=== PATIENT | female | born 1940 | race Caucasian/White ===

== ENCOUNTER 2020-07-30 16:58 | Emergency (ER) | payer MEDICARE, OTHER, SELFPAY ==
[2020-07-30 17:04] VITALS: BP 192/89; PULSE 100; RESP 18; TEMP 37; O2SAT 97; BMI 30.9
[2020-07-30 17:12] VITALS: BP 192/89; PULSE 96; RESP 18; O2SAT 97
--- NOTE | 2020-07-30 17:14 | USR_ITS ---
PROCEDURE INFORMATION: Exam: US Duplex Left Lower Extremity Veins, Limited Exam date and time: 07/30/2020 5:18 PM Age: 79 years old Clinical indication: Pain; Leg, lower; Left; Additional info: Left calf swelling TECHNIQUE: Imaging protocol: Real-time Duplex ultrasound of the Left Lower Extremity with 2-D roberts scale, color Doppler flow and spectral waveform analysis with image documentation. Limited exam focused on the left lower extremity veins. Total images: 1756 COMPARISON: No relevant prior studies available. FINDINGS: Left deep veins: Unremarkable. The common femoral, femoral, proximal profunda femoral and popliteal veins are patent without thrombus. Normal Doppler waveforms. Normal compressibility and/or augmentation response. Left superficial veins: Unremarkable. Saphenofemoral junction is patent without thrombus. Soft tissues: Unremarkable. US/CV venous duplex [facility] [id number] IMPRESSION: No evidence of deep vein thrombosis.
[2020-07-30 17:19] VITALS: PULSE 99
[2020-07-30 17:43] LABS: Basophils # 0.1 10^3/uL (0.0-0.1); Eosinophils # 0.1 10^3/uL (0.0-0.8); Eosinophils % 2.1 %; Hematocrit 33.3 % (37.0-47.0); Hemoglobin 10.8 g/dL (11.5-15.3); Lymphocytes # 2.2 10^3/uL (0.8-4.8); Lymphocytes % 46.5 %; Mean Corpuscular HGB Conc 32.4 g/dL (30.0-36.0); Mean Corpuscular Hemoglobin 29.8 pg (28.0-34.0); Mean Platelet Volume 8.2 fL (7.4-10.4); Monocytes # 0.5 10^3/uL (0.2-0.9); Monocytes % 9.4 %; Neutrophils # 1.94 10^3/uL (1.8-7.7); Neutrophils % 40.8 %; Nucleated Red Blood Cells % 0 %; Platelet Count 223 10^3/cmm (130-400); Red Blood Count 3.62 10^6/uL (4.1-5.3); White Blood Count 4.8 10^3/uL (4.0-10.0)
[2020-07-30 17:51] LABS: INR 0.98 (0.8-1.2)
[2020-07-30 17:54] LABS: D Dimer 0.71 ug/mIFEU (0-0.59)
[2020-07-30 17:58] LABS: Alanine Aminotransferase 17 U/L (0-33); Albumin Level 4.3 g/dL (3.5-5.2); Alkaline Phosphatase 71 IU/L (35-105); Anion Gap 13.8 (5-19); Aspartate Amino Transferase 21 U/L (0-32); Blood Urea Nitrogen 21 mg/dL (8-23); Calcium 8.8 mg/dL (8.5-10.5); Carbon Dioxide 27 mmol/L (22-29); Chloride 97 mmol/L (98-107); Globulin 3.1 g/dL (1.3-4.6); Glucose 99 mg/dL (65-115); Osmolality Calculated 279 mOsm/kg (285-295); Potassium 4.8 mmol/L (3.5-5.1); Sodium 133 mmol/L (136-145); Total Bilirubin 0.2 mg/dL (0.15-1.2); Total Protein 7.4 g/dL (6.6-8.7)
--- NOTE | 2020-07-30 18:37 | ED_ITS ---
HPI - Extremity Problem General: Chief complaint: Extremity Problem,Nontraumatic Stated complaint: PAIN IN LLE BEGAN AFTER J&J COVID VACCINE 05.10 Time Seen by Provider: 07/30/20 17:09 Source: patient and family (daughter) Mode of arrival: ambulatory Limitations: no limitations History of Present Illness: HPI Narrative: Patient is an 79-year-old female who developed left leg pain about 3 days ago. 1 week ago she received her Jose & Jose COVID-19 vaccine. She is concerned that she may have a DVT. No prior history of DVTs but her daughter has had a DVT in the past. No trauma to her left lower extremity. MD Complaint: extremity pain and extremity swelling Onset (ago): day(s) (3) Pain Consistency: constant Quality: sharp Radiation: proximal Relieving factors: nothing Exacerbating factors: nothing Associated symptoms: Deny arthralgias, chest pain, fever(s), myalgias, rash or short of breath Review of Systems General: Reports: 10 or more systems reviewed and unremarkable except in HPI and below Const: Denies: fever(s) Card: Denies: chest pain Skin/Breast: Denies: rash Physical Exam Const: COMMON NORMALS: no acute distress, average body habitus, patient oriented x3, no limitations, healthy appearing, alert and well nourished Neck/C-Spine: COMMON NORMALS: no meningeal signs and no JVD Resp: COMMON NORMALS: normal respiratory effort, No retractions, No use of accessory muscles, clear to auscultation bilaterally and percussion normal AUSCULTATION: clear to auscultation bilaterally PERCUSSION: percussion normal Cardio: COMMON NORMALS: no JVD, regular rate, regular rhythm, S1 normal heart sound present, S2 normal heart sound present, No gallops present (Cardio), No clicks present (Cardio), No murmurs present (Cardio), No rub (Cardio) and Peripheral pulses 2+ throughout RATE: regular rate RHYTHM: regular rhythm HEART SOUNDS: S1 normal heart sound present and S2 normal heart sound present PERIPHERAL PULSES: Peripheral pulses 2+ throughout GI: COMMON NORMALS: Normal to inspection, nondistended, normoactive bowel sounds present, Soft to palpation, non-tender, No hepatosplenomegaly present, no masses and no bruits PALPATION: Yes Soft to palpation and Yes No hepatosplenomegaly present Extremity: COMMON NORMALS: normal to inspection, full ROM, capillary refill normal, no calf tenderness and no pedal edema LEFT LOWER EXTREMITY: Yes lower leg (Mild swelling of the left lower extremity. Positive calf tenderness.) Left lower leg: Yes palpation Neuro: COMMON NORMALS: patient oriented x3 SENSORIUM/ORIENTATION: Yes alert MENINGEAL SIGNS: Yes no meningeal signs Skin: COMMON NORMALS: no rashes or lesions noted, no wounds, turgor normal, no jaundice, no petechiae and no mottling GENERAL SKIN EXAM: no rashes or lesions noted and turgor normal Course Reevaluation(s): Reevaluation #1: Discussed lab and imaging findings with her. Negative venous Doppler. Labs unremarkable, normal platelet count reducing the risk of Jose & Jose vaccine induced thrombosis. She is discharged home on conservative measures. Time: 18:37 Vital Signs: Vital signs: Vital Signs Temperature 98.6 F 07/30/20 17:04 Pulse Rate 87 07/30/20 18:43 Respiratory Rate 18 07/30/20 18:43 Blood Pressure 172/82 07/30/20 18:43 Pulse Oximetry 97 07/30/20 18:43 MDM - Extremity (Nontraumatic) MDM Narrative: Medical decision making narrative: Patient who presents with left lower extremity pain and swelling. She has concern for DVT because a few days before the pain started she had received the Jose [employer] Jose COVID-19 vaccine. Evaluation in the ED was unremarkable including normal platelet count. She is discharged home on conservative measures. Lab Data: Labs: Lab Results 07/30/20 07/30/20 07/30/20 Range/Units 17:29 17:29 17:29 WBC 4.8 (4.0-10.0) 10^3/ uL RBC 3.62 L (4.1-5.3) 10^6/u L Hgb 10.8 L (11.5-15.3) g/dL Hct 33.3 L (37.0-47.0) % MCV 92.0 (81-99) fL MCH 29.8 (28.0-34.0) pg MCHC 32.4 (30.0-36.0) g/dL RDW 13.0 (12.1-15.1) % Plt Count 223 (130-400) 10^3/c mm MPV 8.2 (7.4-10.4) fL Neut % (Auto) 40.8 % Lymph % (Auto) 46.5 % [place] % (Auto) 9.4 % Eos % (Auto) 2.1 % Baso % (Auto) 1.0 % Neut # (Auto) 1.94 (1.8-7.7) 10^3/u L Lymph # (Auto) 2.2 (0.8-4.8) 10^3/u L [place] # (Auto) 0.5 (0.2-0.9) 10^3/u L Eos # (Auto) 0.1 (0.0-0.8) 10^3/u L Baso # (Auto) 0.1 (0.0-0.1) 10^3/u L Nucleated RBC % (a uto) 0 % Nucleated RBCs # 0.0 /100WBC PT 13.30 (12.1-14.9) SECO NDS INR 0.98 (0.8-1.2) D-Dimer 0.71 H (0-0.59) ug/mIFE U Sodium 133 L (136-145) mmol/L Potassium 4.8 (3.5-5.1) mmol/L Chloride 97 L (98-107) mmol/L Carbon Dioxide 27 (22-29) mmol/L Anion Gap 13.8 (5-19) BUN 21 (8-23) mg/dL Creatinine 1.0 H (0.5-0.9) mg/dL GFR Calculation Not Reportable Glucose 99 (65-115) mg/dL Calculated Osmolal ity 279 L (285-295) mOsm/k g Calcium 8.8 (8.5-10.5) mg/dL Total Bilirubin 0.2 (0.15-1.2) mg/dL AST 21 (0-32) U/L ALT 17 (0-33) U/L Alkaline Phosphata se 71 (35-105) IU/L Total Protein 7.4 (6.6-8.7) g/dL Albumin 4.3 (3.5-5.2) g/dL Globulin 3.1 (1.3-4.6) g/dL Imaging Data^: US Vascular: Attestation: I personally reviewed and interpreted this imaging study as follows: Radiologist's impression: [facility] [facility] Hospital[address].[place], [place] [address]Knttskxeof ReportSigned Patient: Diana Barney #: [id number]: 9Acct#:[id number]/Sex: 79 / FADM Date: 07/30/20Loc: ERRoom/Bed:Attending Dr: Ordering Provider/Ordering MD: Dez Moore MD, [facility] Date of Service: 07/30/20 Procedure(s): [place] [address] Accession Number(s): [id number] Report Number: [id number] PROCEDURE INFORMATION: Exam: US Duplex Left Lower Extremity Veins, Limited Exam date and time: 07/30/2020 5:18 PM Age: 79 years old Clinical indication: Pain; Leg, lower; Left; Additional info: Left calf swelling TECHNIQUE: Imaging protocol: Real-time Duplex ultrasound of the Left Lower Extremity with 2-D roberts scale, color Doppler flow and spectral waveform analysis with image documentation. Limited exam focused on the left lower extremity veins. Total images: 1756 COMPARISON: No relevant prior studies available. FINDINGS: Left deep veins: Unremarkable. The common femoral, femoral, proximal profunda femoral and popliteal veins are patent without thrombus. Normal Doppler waveforms. Normal compressibility and/or augmentation response. Left superficial veins: Unremarkable. Saphenofemoral junction is patent without thrombus. Soft tissues: Unremarkable. US/[place] [id number] IMPRESSION: No evidence of deep vein thrombosis. Dictated By:Fadia Morales By:Fadia Morales Date/Time:07/30/201826DD/ 24 Discharge Plan Discharge Patient Disposition: Home Clinical Impression: Acute pain of left lower extremity Condition: Stable Prescriptions: Continued diphenhydramine HCl 50 mg Tablet 50 mg PO DAILY RF: 0 cod liver oil Capsule 1 cap PO DAILY RF: 0 famotidine 20 mg tablet 20 mg PO BEDTIME RF: 0 aspirin 81 mg Tablet,Chewable 81 mg PO DAILY RF: 0 lisinopril 5 mg tablet 5 mg PO TID RF: 0 loratadine 10 mg Tablet 10 mg PO DAILY RF: 0 yllhooy-mdbwbwhmz-tstl 333-133-5 mg Tablet 1 tab PO TID RF: 0 Probiotic 3 billion cell Capsule 3,000 mmu cells PO BEDTIME RF: 0 Discharge Orders: Discharge ED (Routine); Ordered 07/30/20 Ordered By: Dez Moore Referrals: Diaz Lopes MD [Primary Care Provider] - 1-3 days Discharge Diet: Usual diet Discharge Activity: Increase activity as tolerated Activity Restrictions/Additional Instructions: Return for any new or worsening symptoms. Follow-up with your primary care provider within 3 days. Take Tylenol or ibuprofen as needed for pain. Elevate your left lower extremity to reduce swelling. Coding Level of Care Code ED Type Rolling Machine Operator for Nilo Tarango
[2020-07-30 18:43] VITALS: BP 172/82; PULSE 87; RESP 18; O2SAT 97
== END 2020-07-30 18:45 | disposition home or self-care (01) ==
PROVIDERS: Emergency Provider Family Medicine; PCP Family Medicine
DX: M79.605 Pain in left leg (principal); Z79.82 Long term (current) use of aspirin
CPT/HCPCS: 80053; 85025; 85378; 85610; 93971; 99283

== ENCOUNTER 2020-08-07 10:53 | Outpatient (CLI) | payer MEDICARE, OTHER, SELFPAY ==
--- NOTE | 2020-08-07 11:05 | XR_ITS ---
WS: [id number] Exam: XR knee LT 3V* [id number] Date/Time of Exam: 08/07/2020 11:25 AM Reason For Exam: KNEE PAIN,LEFT No fracture or dislocation. Moderate tricompartmental degenerative change noted. Probable loose joint bodies. No joint effusion. Osteopenia. XR/XR knee LT 3V* [id number] IMPRESSION: 1. Moderate tricompartmental DJD. 2. Probable loose joint bodies.
== END 2020-08-07 10:54 | disposition home or self-care (01) ==
PROVIDERS: PCP Family Medicine; Visit Provider Family Medicine
DX: M25.562 Pain in left knee (principal); M17.12 Unilateral primary osteoarthritis, left knee
CPT/HCPCS: 73562

== ENCOUNTER 2021-10-02 18:16 | Emergency (ER) | payer MEDICARE, OTHER, SELFPAY ==
--- NOTE | 2021-10-02 18:55 | XRR_ITS ---
PROCEDURE INFORMATION: Exam: XR Chest Exam date and time: 10/02/2021 7:04 PM Age: 80 years old Clinical indication: Other: Syncope; Additional info: Emesis, syncope TECHNIQUE: Imaging protocol: Radiologic exam of the chest. Views: 1 view. COMPARISON: CR Chest 1 [place] [id number] 08/12/2016 7:35 AM FINDINGS: Lungs: Unremarkable. No consolidation. Pleural spaces: Unremarkable. No pleural effusion. No pneumothorax. Heart/Mediastinum: Unremarkable. No cardiomegaly. Bones/joints: Unremarkable. XR/XR chest 1V portable [id number] IMPRESSION: No acute findings.
[2021-10-02 18:58] VITALS: BP 157/67; PULSE 96; RESP 18; O2SAT 96
--- NOTE | 2021-10-02 19:06 | ED_ITS ---
HPI - General Adult General: Chief complaint: Nausea/Vomiting/Diarrhea Stated complaint: N/V/D SYNCOPE Time Seen by Provider: 10/02/21 18:55 History of Present Illness: 80-year-old female comes in today for complaints of several episodes of diarrhea. Patient then felt lightheaded and had a episode of unresponsiveness followed by nausea and vomiting. Patient is more alert and responsive at this time. Patient was brought to the emergency room by EMS. Both daughters are at bedside. They reported this morning she woke up and spent some time outside but then came back in the house because she was not feeling well. Patient rested and drink plenty of fluids and ate some peanut butter crackers. This afternoon patient started having episodes of diarrhea which the daughter is reported as 4 large episodes. Patient states that she did feel better after the episodes of diarrhea but weak and hungry. While the daughters were getting her something to eat she started having blurry vision and feeling like she was going to pass out. The daughters reported that she then had several more episodes of watery stools. Followed by an episode of syncope. The daughters reported checking her blood pressure and noted it was in 90 systolic and pulse rate was in the 30s. Patient was unresponsive to tactile stimuli. EMS was then dispatched to the home. By the time EMS arrived patient was more alert but weak. Patient in the interim did have 2-3 episodes of emesis. At this time patient appears nontoxic, answering questions, but reports feeling weak and tired. Associated symptoms: Reports nausea, syncope and vomiting; Deny chest pain, dyspnea, headache(s) or rash Review of Systems General: Reports: 10 or more systems reviewed and unremarkable except in HPI and below Const: Reports: fatigue Card: Reports: syncope; Denies: chest pain Resp: Denies: dyspnea GI: Reports: nausea, vomiting and diarrhea : Denies: difficulty voiding Musc: Denies: neck pain or back pain Skin/Breast: Denies: rash Neuro: Reports: seizure-like activity; Denies: headache(s) Physical Exam Const: COMMON NORMALS: patient oriented x3 and alert HENMT: COMMON NORMALS: normocephalic HEAD & SCALP: normocephalic Neck/C-Spine: COMMON NORMALS: full ROM Resp: COMMON NORMALS: normal respiratory effort and clear to auscultation bilaterally AUSCULTATION: clear to auscultation bilaterally Cardio: COMMON NORMALS: regular rate and regular rhythm RATE: regular rate RHYTHM: regular rhythm GI: COMMON NORMALS: Soft to palpation and non-tender AUSCULTATION: Yes Hyperactive bowel sounds present PALPATION: Yes Soft to palpation Extremity: COMMON NORMALS: no pedal edema RIGHT LOWER EXTREMITY: Yes foot & digits (Arthritic joint with scar from ORIF) Neuro: COMMON NORMALS: patient oriented x3 SENSORIUM/ORIENTATION: Yes alert Skin: COMMON NORMALS: no rashes or lesions noted GENERAL SKIN EXAM: no rashes or lesions noted Course Vital Signs: Vital signs: Vital Signs Pulse Rate 96 10/02/21 18:58 Respiratory Rate 18 10/02/21 18:58 Blood Pressure 157/67 10/02/21 18:58 Pulse Oximetry 96 10/02/21 18:[address] [facility] - General Adult Medical Decision Making Patient comes in today with episode of syncope after a bout of nausea vomiting and diarrhea. On exam patient was more alert and reported feeling better. Abdomen is soft nontender. Bowel sounds were present. Vital signs were normal. Differential diagnosis includes ACS, intracranial bleed, gastroenteritis, dehydration, bowel obstruction. CBC noted some mild anemia improved over last drawl, CMP noted some decrease sodium at 128 and a creatinine 1.0 suggesting dehydration, troponin was 24 on the first draw and 21 on the second draw showing no exchange consultant the [address] of the head was unremarkable. CT of the abdomen and pelvis indicated no significant abnormalities. Chest x-ray was normal. Believe patient probably had an episode of vasovagal syncope after her bout of diarrhea and vomiting. Patient was given 1-1/2 L of saline and a dose of ondansetron. Patient was able to tolerate p.o. fluids and saltine crackers and Jell-O. Reviewed exam with patient and family members with recommendations for monitoring and returning as needed for worsening symptoms. Lab Data : 10/02/21 17:52 10/02/21 17:52 Radiology Impressions Chest X-Ray 10/02/21 18:55 IMPRESSION: No acute findings. Head CT 10/02/21 19:31 IMPRESSION: Negative for intracranial hemorrhage or mass effect. Abdomen/Pelvis CT 10/02/21 19:32 IMPRESSION: 1. Left colon wall thickening likely due to nondistention, a colitis is felt less likely. 2. Small to moderate nonspecific fluid in the pelvis. 3. Coronary artery atherosclerotic calcifications. 4. Cholecystectomy. 5. Diverticulosis without diverticulitis. Laboratory Results WBC 7.5 10^3/uL (4.0-10.0) 10/02/21 17:52 RBC 4.02 10^6/uL (4.1-5.3) L 10/02/21 17:52 Hgb 11.4 g/dL (11.5-15.3) L 10/02/21 17:52 Hct 34.8 % (37.0-47.0) L 10/02/21 17:52 MCV 86.6 fl (81-99) 10/02/21 17:52 MCH 28.4 pg (28.0-34.0) 10/02/21 17:52 MCHC 32.8 g/dL (30.0-36.0) 10/02/21 17:52 RDW 13.1 % (12.1-15.1) 10/02/21 17:52 Plt Count 335 10^3/cmm (130-400) 10/02/21 17:52 MPV 8.9 fL (7.4-10.4) 10/02/21 17:52 Neut % (Auto) 56.5 % 10/02/21 17:52 Lymph % (Auto) 31.8 % 10/02/21 17:52 [place] % (Auto) 7.9 % 10/02/21 17:52 Eos % (Auto) 2.3 % 10/02/21 17:52 Baso % (Auto) 1.1 % 10/02/21 17:52 Neut # (Auto) 4.21 10^3/uL (1.8-7.7) 10/02/21 17:52 Lymph # (Auto) 2.4 10^3/uL (0.8-4.8) 10/02/21 17:52 [place] # (Auto) 0.6 10^3/uL (0.2-0.9) 10/02/21 17:52 Eos # (Auto) 0.2 10^3/uL (0.0-0.8) 10/02/21 17:52 Baso # (Auto) 0.1 10^3/uL (0.0-0.1) 10/02/21 17:52 Nucleated RBC % (auto) 0 % 10/02/21 17:52 Nucleated RBCs # 0.0 /100WBC 10/02/21 17:52 Sodium 128 mmol/L (136-145) L 10/02/21 17:52 Potassium 4.3 mmol/L (3.5-5.1) 10/02/21 17:52 Chloride 91 mmol/L (98-107) L 10/02/21 17:52 Carbon Dioxide 23 mmol/L (22-29) 10/02/21 17:52 Anion Gap 18.3 (5-19) 10/02/21 17:52 BUN 23 mg/dL (8-23) 10/02/21 17:52 Creatinine 1.0 mg/dL (0.5-0.9) H 10/02/21 17:52 GFR Calculation Not Reportable 10/02/21 17:52 Glucose 128 mg/dL (65-115) H 10/02/21 17:52 POC Glucose 176 mg/dL (70-110) H 10/02/21 19:14 Calculated Osmolality 271 mOsm/kg (285-295) L 10/02/21 17:52 Calcium 9.4 mg/dL (8.5-10.5) 10/02/21 17:52 Total Bilirubin 0.2 mg/dL (0.15-1.2) 10/02/21 17:52 AST 25 U/L (0-32) 10/02/21 17:52 ALT 13 U/L (0-33) 10/02/21 17:52 Alkaline Phosphatase 78 IU/L (35-105) 10/02/21 17:52 Troponin T Baseline 24 ng/L (0-10) H 10/02/21 17:52 Troponin T 120 Minute 21.14 ng/L (0-10) H 10/02/21 21:40 Delta Troponin T -2.86 ABS# (0-10) L 10/02/21 21:40 Total Protein 6.9 g/dL (6.6-8.7) 10/02/21 17:52 Albumin 4.8 g/dL (3.5-5.2) 10/02/21 17:52 Globulin 2.1 g/dL (1.3-4.6) 10/02/21 17:52 Lipase 126 U/L (13-60) H 10/02/21 17:52 Urine Color Yellow (Yellow) 10/02/21 20:26 Urine Appearance Clear (CLEAR) 10/02/21 20:26 Urine pH 6.5 (5-7) 10/02/21 20:26 Ur Specific [place] 1.005 (1.005-1.030) 10/02/21 20:26 Urine Protein Neg (Negative) 10/02/21 20:26 Urine Glucose (UA) Norm (Normal) 10/02/21 20:26 Urine Ketones Negative (Negative) 10/02/21 20:26 Urine Blood Neg (Negative) 10/02/21 20:26 Urine Nitrate Negative (Negative) 10/02/21 20:26 Urine Bilirubin Neg (Negative) 10/02/21 20:26 Urine Urobilinogen Norm mg/dL (Negative) 10/02/21 20:26 Ur Leukocyte Esterase 2+ (Negative) H 10/02/21 20:26 Urine RBC 0-4 /hpf (0-2) H 10/02/21 20:26 Urine WBC 10-15 /hpf (0-5) H 10/02/21 20:26 Ur Squamous Epith Cells 0-4 /hpf (0-5) H 10/02/21 20:26 Ur Renal Epithelial Cell 0-4 /hpf 10/02/21 20:26 Amorphous Sediment Not Reportable 10/02/21 20:26 Urine Bacteria 2+ /hpf (NONE) H 10/02/21 20:26 Hyaline Casts 0-4 /lpf H 10/02/21 20:26 EKG Data EKG 1: EKG interpretation date: 10/02/21 EKG interpretation time: 19:48 Interpretation: EKG shows a sinus rhythm with occasional premature supraventricular complexes. Regular rate at [address] elevation is noted. No prior exam was available for comparison. Computer generated interpretation: Chest X-Ray 10/02/21 18:55 IMPRESSION: No acute findings. Head CT 10/02/21 19:31 IMPRESSION: Negative for intracranial hemorrhage or mass effect. Abdomen/Pelvis CT 10/02/21 19:32 IMPRESSION: 1. Left colon wall thickening likely due to nondistention, a colitis is felt less likely. 2. Small to moderate nonspecific fluid in the pelvis. 3. Coronary artery atherosclerotic calcifications. 4. Cholecystectomy. 5. Diverticulosis without diverticulitis. EKG 2: EKG interpretation date: 10/02/21 EKG interpretation time: 21:47 Prior EKG tracings: available for review Interpretation: EKG shows a regular sinus rhythm with a normal rate of [address] elevation or ectopy is noted at this time. Computer generated interpretation: Chest X-Ray 10/02/21 18:55 IMPRESSION: No acute findings. Head CT 10/02/21 19:31 IMPRESSION: Negative for intracranial hemorrhage or mass effect. Abdomen/Pelvis CT 10/02/21 19:32 IMPRESSION: 1. Left colon wall thickening likely due to nondistention, a colitis is felt less likely. 2. Small to moderate nonspecific fluid in the pelvis. 3. Coronary artery atherosclerotic calcifications. 4. Cholecystectomy. 5. Diverticulosis without diverticulitis. Discharge Plan Discharge Patient Disposition: Home Clinical Impression: Syncope, vasovagal, Gastroenteritis, Dehydration Condition: Stable Prescriptions: No Action cod liver oil Capsule 1 cap PO DAILY 0RF famotidine 20 mg tablet 20 mg PO BEDTIME 0RF aspirin 81 mg Tablet,Chewable 81 mg PO DAILY 0RF lisinopril 5 mg tablet 5 mg PO TID 0RF loratadine 10 mg Tablet 10 mg PO DAILY 0RF bjhklzy-wdorndxxu-lqll 333-133-5 mg Tablet 1 tab PO TID 0RF Probiotic 3 billion cell Capsule 3,000 mmu cells PO BEDTIME 0RF Discharge Orders: Discharge ED (Routine); Ordered 10/02/21 Ordered By: Carlos Alberto Avendano Referrals: Diaz Lopes MD [Primary Care Provider] - Discharge Diet: Usual diet Discharge Activity: Increase activity as tolerated Patient Instructions: Dehydration (ED) Activity Restrictions/Additional Instructions: Increase diet slowly over the next 24 to 48 hours. Avoid spicy, overly acidic, or greasy foods. Start with a bland diet with foods like bananas, rice, apples, toast, and boiled chicken. Follow-up with primary care as needed. Return to ER for new concerns. Coding Level of Care Code ED Intermediate Card Tender for Chg Fwd Exam Comprehensive
[2021-10-02 19:27] LABS: Glucose Point of Care 176 mg/dL (70-110)
[2021-10-02] MEDS: sodium chloride 0.9% 500 ML 999 ML IV (19:30)
--- NOTE | 2021-10-02 19:31 | CTR_ITS ---
PROCEDURE INFORMATION: Exam: CT Head Without Contrast Exam date and time: 10/02/2021 7:31 PM Age: 80 years old Clinical indication: Syncope and collapse; Patient HX: Syncopal episode today. C/O general weakness. TECHNIQUE: Imaging protocol: Computed tomography of the head without contrast. Radiation optimization: All CT scans at this facility use at least one of these dose optimization techniques: automated exposure control; mA and/or kV adjustment per patient size (includes targeted exams where dose is matched to clinical indication); or iterative reconstruction. COMPARISON: CT head wo con* [id number] 12/03/2018 2:51 PM RADIATION DOSE METRICS: Total DLP (mGy-cm): 1078.38 FINDINGS: Brain: Mild diffuse white matter disease likely reflecting chronic microvascular ischemic changes. Cerebral ventricles: No ventriculomegaly. Paranasal sinuses: Visualized sinuses are unremarkable. No fluid levels. Mastoid air cells: Visualized mastoid air cells are well aerated. Bones/joints: Unremarkable. No acute fracture. Soft tissues: Unremarkable. CT/CT head wo con* [id number] IMPRESSION: Negative for intracranial hemorrhage or mass effect.
--- NOTE | 2021-10-02 19:32 | CTR_ITS ---
PROCEDURE INFORMATION: Exam: CT Abdomen And Pelvis Without Contrast Exam date and time: 10/02/2021 7:35 PM Age: 80 years old Clinical indication: Nausea and vomiting; Prior surgery; Surgery type: Gb; Patient HX: C/O n/v/d TECHNIQUE: Imaging protocol: Computed tomography of the abdomen and pelvis without contrast. Radiation optimization: All CT scans at this facility use at least one of these dose optimization techniques: automated exposure control; mA and/or kV adjustment per patient size (includes targeted exams where dose is matched to clinical indication); or iterative reconstruction. COMPARISON: US Abdomen Trauma [id number] 12/03/2018 2:30 PM RADIATION DOSE METRICS: Total DLP (mGy-cm): 1187.04 FINDINGS: Heart: Coronary artery atherosclerotic calcifications. Liver: Normal. No mass. Gallbladder and bile ducts: Cholecystectomy. Pancreas: Normal. No ductal dilation. Spleen: Normal. No splenomegaly. Adrenal glands: Normal. No mass. Kidneys and ureters: Normal. No hydronephrosis. Stomach and bowel: Left colon wall thickening likely due to nondistention, a colitis is felt less likely. Diverticulosis without diverticulitis. Appendix: No evidence of appendicitis. Intraperitoneal space: Unremarkable. No free air. No significant fluid collection. Vasculature: Unremarkable. No abdominal aortic aneurysm. Lymph nodes: Unremarkable. No enlarged lymph nodes. Urinary bladder: Unremarkable as visualized. Reproductive: Unremarkable as visualized. Bones/joints: Unremarkable. No acute fracture. Soft tissues: Unremarkable. Other findings: Small to moderate nonspecific fluid in the pelvis. CT/CT abdomen pelvis wo con [id number] IMPRESSION: 1. Left colon wall thickening likely due to nondistention, a colitis is felt less likely. 2. Small to moderate nonspecific fluid in the pelvis. 3. Coronary artery atherosclerotic calcifications. 4. Cholecystectomy. 5. Diverticulosis without diverticulitis.
[2021-10-02 19:48] LABS: Basophils # 0.1 10^3/uL (0.0-0.1); Basophils % 1.1 %; Eosinophils # 0.2 10^3/uL (0.0-0.8); Eosinophils % 2.3 %; Hematocrit 34.8 % (37.0-47.0); Hemoglobin 11.4 g/dL (11.5-15.3); Lymphocytes # 2.4 10^3/uL (0.8-4.8); Lymphocytes % 31.8 %; Mean Corpuscular HGB Conc 32.8 g/dL (30.0-36.0); Mean Corpuscular Hemoglobin 28.4 pg (28.0-34.0); Mean Corpuscular Volume 86.6 fl (81-99); Mean Platelet Volume 8.9 fL (7.4-10.4); Monocytes # 0.6 10^3/uL (0.2-0.9); Monocytes % 7.9 %; Neutrophils # 4.21 10^3/uL (1.8-7.7); Neutrophils % 56.5 %; Nucleated Red Blood Cells % 0 %; Platelet Count 335 10^3/cmm (130-400); Red Blood Count 4.02 10^6/uL (4.1-5.3); Red Cell Distribution Width 13.1 % (12.1-15.1); White Blood Count 7.5 10^3/uL (4.0-10.0)
[2021-10-02] MEDS: sodium chloride 0.9% 1,000 ML 999 ML IV (20:15)
[2021-10-02 20:25] LABS: Troponin(5th) Baseline 24 ng/L (0-10)
[2021-10-02 20:27] LABS: Alanine Aminotransferase 13 U/L (0-33); Albumin Level 4.8 g/dL (3.5-5.2); Alkaline Phosphatase 78 IU/L (35-105); Anion Gap 18.3 (5-19); Aspartate Amino Transferase 25 U/L (0-32); Blood Urea Nitrogen 23 mg/dL (8-23); Calcium 9.4 mg/dL (8.5-10.5); Carbon Dioxide 23 mmol/L (22-29); Chloride 91 mmol/L (98-107); Globulin 2.1 g/dL (1.3-4.6); Glucose 128 mg/dL (65-115); Lipase 126 U/L (13-60); Osmolality Calculated 271 mOsm/kg (285-295); Potassium 4.3 mmol/L (3.5-5.1); Sodium 128 mmol/L (136-145); Total Bilirubin 0.2 mg/dL (0.15-1.2); Total Protein 6.9 g/dL (6.6-8.7)
[2021-10-02 20:40] LABS: Add Urine Microscopic? YES; Bacteria Urine 2+ /hpf; Bilirubin Urine Neg (Negative); Blood Urine Neg (Negative); Glucose Urine UA Norm (Normal); Hyaline Casts Urine 0-4 /lpf; Ketones Urine Negative (Negative); Leukocyte Esterase Urine 2+ (Negative); Nitrate Urine Negative (Negative); Protein Urine Neg (Negative); RBC Urine 0-4 /hpf (0-2); Renal Epithelial Cells Urine 0-4 /hpf; Specific Gravity, Urine 1.005 (1.005-1.030); Squamous Epithelial Cell Urine 0-4 /hpf (0-5); Urine Appearance Clear (CLEAR); Urine Color Yellow (Yellow); Urobilinogen Urine Norm (Negative); pH Urine 6.5 (5-7)
[2021-10-02 20:41] LABS: Add Urine Culture? Yes
--- NOTE | 2021-10-02 20:55 | ECG_ITS ---
[facility] Test Date: 2021-10-02 Pat Name: Diana Barney Department: Room: Gender: Female Answerer: : 1940 Requested By: Carlos Alberto Carrasco Order Number: [id number] Paramjit MD: Trey Dseai M.D. Measurements Intervals [place] Rate: 98 P: 62 [place]: 151 QRS: 36 QRSD: 89 T: 70 QT: 331 QTc: 424 Interpretive Statements SINUS RHYTHM POSSIBLE RIGHT VENTRICULAR CONDUCTION DELAY [RSR (QR) IN V1/V2] NONSPECIFIC ST & T-WAVE ABNORMALITY Compared to ECG 11/16/2017 20:25:39 T-wave abnormality now present Electronically Signed On 10-03-2021 16:40:12 CDT by Trey Desai M.D. [email or web address]
[2021-10-02 22:14] LABS: Troponin 5 2HR 21.14 ng/L (0-10)
[2021-10-02 22:16] LABS: Troponin 5 2HR Delta -2.86 ABS# (0-10)
[2021-10-02 22:53] VITALS: BP 133/104; O2SAT 96
== END 2021-10-02 22:57 | disposition home or self-care (01) ==
PROVIDERS: Emergency Provider Nurse Practitioner Family; PCP Family Medicine
DX: R55 Syncope and collapse (principal); K52.9 Noninfective gastroenteritis and colitis, unspecified; E86.0 Dehydration; Z79.82 Long term (current) use of aspirin
CPT/HCPCS: 36416; 70450; 71045; 74176; 80053; 81001; 82962; 83690; 84484; 85025; 87086; 93005; 96360; 96361; 99285; J7030; J7040

== ENCOUNTER → 2021-10-26 11:07 | Outpatient (BNVA) | payer MEDICARE, OTHER, SELFPAY | PROVIDERS: PCP Family Medicine; Visit Provider Family Medicine | DX: Z51.81 Encounter for therapeutic drug level monitoring (principal); R73.09 Other abnormal glucose; Z13.220 Encounter for screening for lipoid disorders; R10.13 Epigastric pain; E78.5 Hyperlipidemia, unspecified | CPT/HCPCS: 80053; 80061; 83036; 83690; 85025 ==

== ENCOUNTER → 2021-11-21 15:05 | Outpatient (BNVA) | payer MEDICARE, OTHER, SELFPAY | PROVIDERS: PCP Family Medicine; Visit Provider Family Medicine | DX: D64.9 Anemia, unspecified (principal) | CPT/HCPCS: 82270 ==

== ENCOUNTER → 2022-05-16 10:01 | Outpatient (BNVA) | payer MEDICARE, OTHER, SELFPAY | PROVIDERS: PCP Family Medicine; Visit Provider Podiatrist Foot & Ankle Surgery | DX: I73.9 Peripheral vascular disease, unspecified (principal); L60.3 Nail dystrophy; M21.611 Bunion of right foot; M20.41 Other hammer toe(s) (acquired), right foot; M21.41 Flat foot [pes planus] (acquired), right foot; M21.42 Flat foot [pes planus] (acquired), left foot | CPT/HCPCS: 11721; 99204 ==

== ENCOUNTER → 2022-07-24 15:53 | Outpatient (BNVA) | payer MEDICARE, OTHER, SELFPAY | PROVIDERS: PCP Family Medicine; Visit Provider Clinical Nurse Specialist Adult Health | DX: D64.9 Anemia, unspecified (principal); E04.1 Nontoxic single thyroid nodule; E55.9 Vitamin D deficiency, unspecified | CPT/HCPCS: 80053; 82306; 82607; 82728; 82746; 83550; 84439; 84443; 84481; 85025 ==

== ENCOUNTER → 2022-08-14 15:34 | Outpatient (BNVA) | payer MEDICARE, OTHER, SELFPAY | PROVIDERS: PCP Family Medicine; Referring Provider Clinical Nurse Specialist Adult Health; Visit Provider Dermatology | DX: L57.0 Actinic keratosis (principal); L81.4 Other melanin hyperpigmentation; Z85.828 Personal history of other malignant neoplasm of skin; L82.1 Other seborrheic keratosis; Z87.891 Personal history of nicotine dependence | CPT/HCPCS: 17000; 17003; 99203 ==

== ENCOUNTER → 2022-09-03 14:27 | Outpatient (BNVA) | payer MEDICARE, OTHER, SELFPAY | PROVIDERS: PCP Family Medicine; Visit Provider Podiatrist Foot & Ankle Surgery | DX: I73.9 Peripheral vascular disease, unspecified (principal); L60.8 Other nail disorders; L60.3 Nail dystrophy; M21.611 Bunion of right foot; M20.41 Other hammer toe(s) (acquired), right foot; M21.41 Flat foot [pes planus] (acquired), right foot; M21.42 Flat foot [pes planus] (acquired), left foot | CPT/HCPCS: 11721 ==

== ENCOUNTER → 2022-09-10 10:38 | Outpatient (BNVA) | payer MEDICARE, OTHER, SELFPAY | PROVIDERS: PCP Family Medicine; Visit Provider Surgery | DX: D50.9 Iron deficiency anemia, unspecified (principal); K30 Functional dyspepsia | CPT/HCPCS: 99203 ==

== ENCOUNTER → 2022-09-11 10:47 | Outpatient (BNVA) | payer MEDICARE, OTHER, SELFPAY | PROVIDERS: PCP Family Medicine; Visit Provider Internal Medicine Cardiovascular Disease | DX: I49.9 Cardiac arrhythmia, unspecified (principal); R94.31 Abnormal electrocardiogram [ECG] [EKG]; I10 Essential (primary) hypertension; D64.9 Anemia, unspecified; Z87.891 Personal history of nicotine dependence | CPT/HCPCS: 99204 ==

== ENCOUNTER → 2022-09-12 12:51 | Outpatient (BNVA) | payer MEDICARE, OTHER, SELFPAY | PROVIDERS: PCP Family Medicine; Visit Provider Internal Medicine | DX: R06.09 Other forms of dyspnea (principal) | CPT/HCPCS: 93246 ==

== ENCOUNTER → 2022-09-23 13:46 | Outpatient (BNVA) | payer MEDICARE, OTHER, SELFPAY | PROVIDERS: PCP Family Medicine; Visit Provider Family Medicine | DX: Z51.81 Encounter for therapeutic drug level monitoring (principal); Z79.899 Other long term (current) drug therapy | CPT/HCPCS: 85025 ==

== ENCOUNTER 2022-10-01 08:48 | Outpatient (CLI) | payer MEDICARE, OTHER, SELFPAY ==
--- NOTE | 2022-10-01 09:30 | USCV_ITS ---
Diana aBrney Age: 81 Gender: F : 1940 Exam Date: 10/01/2022 09:07 Ordering Phys: Josselin Maki MD ([email or web address]) Technologist: Tita Do Exam Location: [facility] [place] Indication: abnormal EKG BP: 144 / 70 HR: 81 Rhythm: Sinus Technical Quality: Good MEASUREMENTS (Male / Female) Normal Values 2D ECHO LV Diastolic Diameter PLAX 3.8 cm 4.2 - 5.9 / 3.9 - 5.3 cm LV Systolic Diameter PLAX 2.1 cm IVS Diastolic Thickness 1.5 cm 0.6 - 1.0 / 0.6 - 0.9 cm IVS Systolic Thickness 2.0 cm LVPW Diastolic Thickness 1.3 cm 0.6 - 1.0 / 0.6 - 0.9 cm LVPW Systolic Thickness 1.6 cm LVOT Diameter 2.0 cm LV Ejection Fraction 2D Teich 76.3 % LA Diameter 3.8 cm LA Width 4.2 cm LA Height 4.9 cm RA Width 2.7 cm RA Height 4.2 cm Aorta at Sinotubular Diameter 2.8 cm IVC Diameter 1.6 cm M-MODE Aortic Annulus Diameter 3.0 cm LA Ao Ratio MM 1.5 MV E Point Septal Separation 0.3 cm DOPPLER AV Peak Velocity 157.0 cm/s LVOT Peak Velocity 110.0 cm/s AV Area Cont Eq vti 2.0 cm squared AV Area Cont Eq pk 2.2 cm squared MV Peak Velocity 121.0 cm/s MV Area PHT 3.3 cm squared Mitral E to A Ratio 0.7 MV E' Velocity 42.0 cm/s Mitral E to MV E' Ratio 9.4 Mitral E to LV E' Lateral Ratio 7.4 Mitral E to LV E' Septal Ratio 12.8 TR Peak Velocity 99.8 cm/s TR Peak Gradient 4.0 mmHg Right Atrial Pressure 5.0 mmHg Pulmonary Artery Systolic Pressu 9.0 mmHg PV Peak Velocity 93.0 cm/s RV Acceleration Time 0.1 s RV Ejection Time 0.3 s RV AcT/ET 0.5 FINDINGS Left Ventricle Normal left ventricular size and systolic function, EF 76%.no regional wall motion abnormalities. Mild left ventricular hypertrophy. Grade I/IV diastolic dysfunction (abnormal relaxation filling pattern), normal to mildly elevated filling pressures. Right Ventricle The right ventricle is normal in size and function. Right Atrium The right atrium is normal in size. Left Atrium Mildly increased left atrial size. Mitral Valve Trace mitral valve regurgitation. Aortic Valve Thickened aortic valve. Trace aortic valve regurgitation. Tricuspid Valve Structurally normal tricuspid valve. Trace tricuspid valve regurgitation. Estimated pulmonary artery peak systolic pressure, probably within normal limits. Pulmonic Valve No gross abnormalities noted Pericardium Normal pericardium without effusion. Aorta IVC Normal inferior vena cava. CONCLUSIONS Normal left ventricular size and systolic function, EF 76%.no regional wall motion abnormalities. Mild left ventricular hypertrophy. Grade I/IV diastolic dysfunction (abnormal relaxation filling pattern), normal to mildly elevated filling pressures. Mildly increased left atrial size. Trace mitral valve regurgitation. Thickened aortic valve. Trace aortic valve regurgitation. Possibly normal PA pressure. Because of the poor Doppler signals, the study is of suboptimal quality There is no pericardial effusion. There are no intracardiac masses. Dr Josselin Maki MD FACC (Electronically Signed) Final Date: 03 October 2022 09:17 S
== END 2022-10-01 08:49 | disposition home or self-care (01) ==
PROVIDERS: PCP Family Medicine; Visit Provider Internal Medicine Cardiovascular Disease
DX: R06.09 Other forms of dyspnea (principal); R94.31 Abnormal electrocardiogram [ECG] [EKG]; I51.7 Cardiomegaly; I35.8 Other nonrheumatic aortic valve disorders
CPT/HCPCS: 93306

== ENCOUNTER → 2022-10-14 17:34 | Outpatient (BNVA) | payer MEDICARE, OTHER, SELFPAY | PROVIDERS: PCP Family Medicine; Visit Provider Emergency Medicine | DX: R39.9 Unspecified symptoms and signs involving the genitourinary system (principal); N39.0 Urinary tract infection, site not specified | CPT/HCPCS: 81000; 87086 ==

== ENCOUNTER → 2022-11-25 08:32 | Outpatient (BNVA) | payer MEDICARE, OTHER, SELFPAY | PROVIDERS: PCP Family Medicine; Visit Provider Podiatrist Foot & Ankle Surgery | DX: L60.8 Other nail disorders (principal); L60.3 Nail dystrophy; M21.611 Bunion of right foot; M20.41 Other hammer toe(s) (acquired), right foot; M21.40 Flat foot [pes planus] (acquired), unspecified foot; I73.9 Peripheral vascular disease, unspecified | CPT/HCPCS: 11721 ==

== ENCOUNTER → 2022-12-10 14:12 | Outpatient (BNVA) | payer MEDICARE, OTHER, SELFPAY | PROVIDERS: PCP Family Medicine; Visit Provider Dermatology | DX: L57.8 Other skin changes due to chronic exposure to nonionizing radiation (principal); L82.1 Other seborrheic keratosis; Z08 Encounter for follow-up examination after completed treatment for malignant neoplasm; Z85.828 Personal history of other malignant neoplasm of skin; D48.5 Neoplasm of uncertain behavior of skin | CPT/HCPCS: 11102; 99213 ==

== ENCOUNTER → 2022-12-24 09:15 | Outpatient (BNVA) | payer MEDICARE, OTHER, SELFPAY | PROVIDERS: PCP Family Medicine; Visit Provider Dermatology | DX: C44.311 Basal cell carcinoma of skin of nose (principal) | CPT/HCPCS: 13152; 17311 ==

== ENCOUNTER → 2023-01-16 10:39 | Outpatient (BNVA) | payer MEDICARE, OTHER, SELFPAY | PROVIDERS: PCP Family Medicine; Visit Provider Family Medicine | DX: Z51.81 Encounter for therapeutic drug level monitoring (principal); D50.9 Iron deficiency anemia, unspecified; I49.9 Cardiac arrhythmia, unspecified | CPT/HCPCS: 82728; 83540; 83550; 85025 ==

== ENCOUNTER → 2023-01-27 09:31 | Outpatient (BNVA) | payer MEDICARE, OTHER, SELFPAY | PROVIDERS: PCP Family Medicine; Visit Provider Podiatrist Foot & Ankle Surgery | DX: L60.3 Nail dystrophy (principal); M21.611 Bunion of right foot; M20.41 Other hammer toe(s) (acquired), right foot; M21.41 Flat foot [pes planus] (acquired), right foot; M21.42 Flat foot [pes planus] (acquired), left foot; I73.9 Peripheral vascular disease, unspecified; M79.671 Pain in right foot; M79.672 Pain in left foot; D50.9 Iron deficiency anemia, unspecified; L85.1 Acquired keratosis [keratoderma] palmaris et plantaris; L84 Corns and callosities | CPT/HCPCS: 11056; 11721; 17110 ==

== ENCOUNTER → 2023-06-12 10:21 | Outpatient (BNVA) | payer MEDICARE, OTHER, SELFPAY | PROVIDERS: PCP Family Medicine; Visit Provider Dermatology | DX: L81.4 Other melanin hyperpigmentation (principal); L57.0 Actinic keratosis; L57.8 Other skin changes due to chronic exposure to nonionizing radiation; L72.0 Epidermal cyst; Z85.828 Personal history of other malignant neoplasm of skin | CPT/HCPCS: 10060; 17000; 99213 ==

== ENCOUNTER → 2023-09-16 15:16 | Outpatient (BNVA) | payer MEDICARE, OTHER, SELFPAY | PROVIDERS: PCP Family Medicine | DX: R39.9 Unspecified symptoms and signs involving the genitourinary system (principal); N39.0 Urinary tract infection, site not specified | CPT/HCPCS: 81000; 87086 ==

== ENCOUNTER → 2023-10-02 11:04 | Outpatient (BNVA) | payer MEDICARE, OTHER, SELFPAY | PROVIDERS: PCP Family Medicine; Visit Provider Family Medicine | DX: E53.8 Deficiency of other specified B group vitamins (principal); Z51.81 Encounter for therapeutic drug level monitoring; R73.09 Other abnormal glucose; D64.9 Anemia, unspecified | CPT/HCPCS: 80053; 82607; 82728; 83036; 83550; 85025 ==

== ENCOUNTER → 2024-02-17 11:16 | Outpatient (BNVA) | payer MEDICARE, OTHER, SELFPAY | PROVIDERS: PCP Family Medicine; Visit Provider Family Medicine | DX: Z51.81 Encounter for therapeutic drug level monitoring (principal); D50.9 Iron deficiency anemia, unspecified; D64.9 Anemia, unspecified; E53.8 Deficiency of other specified B group vitamins | CPT/HCPCS: 80053; 82607; 83550; 85025 ==

== ENCOUNTER 2024-03-22 17:24 | Emergency (ER) | payer MEDICARE, OTHER, SELFPAY ==
--- NOTE | 2024-03-22 17:31 | ECG_ITS ---
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 Measurements Intervals [place] Rate: 91 P: 84 [place]: 155 QRS: 57 QRSD: 129 T: 50 QT: 395 QTc: 488 Interpretive Statements SINUS RHYTHM RIGHT BUNDLE BRANCH BLOCK [120+ ms QRS DURATION, UPRIGHT V1, 40+ ms S IN I/aVL/V4/V5/V6] Compared to ECG 10/02/2021 21:32:23 Right bundle-branch block now present T-wave abnormality no longer present Electronically Signed On 03-22-2024 19:26:11 AN/SQQ 89(V)15 SONAR SYSTEM JOURNEYMAN by Josselin Maki M.D. [id number]
[2024-03-22 17:35] VITALS: BP 193/79; PULSE 95; RESP 18; TEMP 36.7; O2SAT 98; BMI 29.2
--- NOTE | 2024-03-22 18:25 | XRR_ITS ---
PROCEDURE INFORMATION: Exam: XR Chest Exam date and time: 03/22/2024 6:55 PM Age: 83 years old Clinical indication: Pain; Chest pressure; Additional info: Chest pain TECHNIQUE: Imaging protocol: Radiologic exam of the chest. Views: 1 view. COMPARISON: CR XR chest 1V portable [id number] 10/02/2021 7:04 PM FINDINGS: Lungs: Emphysematous changes. Pleural spaces: Unremarkable. No pleural effusion. No pneumothorax. Heart/Mediastinum: Unremarkable. No cardiomegaly. Vasculature: Aortic atherosclerotic calcifications. Bones/joints: Unremarkable. XR/XR chest 1V portable [id number] IMPRESSION: 1. Negative for infiltrate. 2. Emphysematous changes. 3. Aortic atherosclerotic calcifications.
[2024-03-22 19:06] LABS: Basophils # 0.1 10^3/uL (0.0-0.1); Basophils % 1.2 %; Eosinophils # 0.1 10^3/uL (0.0-0.8); Eosinophils % 2.9 %; Hematocrit 33.7 % (36-47); Lymphocytes # 1.4 10^3/uL (0.8-4.8); Lymphocytes % 33.4 %; Mean Corpuscular HGB Conc 32.9 g/dL (30-55); Mean Corpuscular Hemoglobin 30.9 pg (27-33); Mean Corpuscular Volume 93.9 fl (85-98); Mean Platelet Volume 8.4 fL (7.4-10.4); Monocytes # 0.3 10^3/uL (0.2-0.9); Monocytes % 7.2 %; Neutrophils # 2.28 10^3/uL (1.8-7.7); Neutrophils % 54.8 %; Nucleated Red Blood Cells % 0 %; Platelet Count 246 10^3/cmm (157-399); Red Blood Count 3.59 10^6/uL (3.85-5.65); Red Cell Distribution Width 12.1 % (12.1-15.1); White Blood Count 4.16 10^3/uL (3.29-11.43)
--- NOTE | 2024-03-22 19:07 | ED_ITS ---
HPI - Chest Pain 2 General: Chief Complaint: Chest Pain Stated Complaint: chest pain Time Seen by Provider: 03/22/24 18:56 History of Present Illness: 83-year-old woman with a history of hype rtension who presents the emergency room with chest pain. This been going on this afternoon. Initially she had some dyspepsia/heartburn symptoms. Later she had a pain that was somewhat sharp and seem to be worse when she would turn her head or move. On presentation here she is a bit hypertensive. She is no longer having any chest discomfort. No cough. No nausea or vomiting. No abdominal pain. No altered mental status. No fevers. Related Data Home Medications Medication Instructions Recorded Confirmed aspirin 81 mg chewable tablet 81 mg PO DAILY 07/30/20 02/17/24 [id number] 333 mg-133 1 tab PO TID 07/30/20 02/17/24 mg-5 mg tablet cod liver oil 1 cap PO DAILY 07/30/20 02/17/24 loratadine 10 mg tablet 10 mg PO DAILY 02/17/24 02/17/24 Previous Rx's Medication Instructions Recorded lisinopril 5 mg tablet See Rx Instructions .Route 05/28/23 .COMPLEX #270 tabs famotidine 20 mg tablet See Rx Instructions .Route 07/18/23 .COMPLEX #90 tabs citalopram 20 mg tablet 20 mg PO DAILY #30 tabs 12/24/23 hydrochlorothiazide 12.5 mg tablet 12.5 mg PO DAILY #30 tabs 02/17/24 amlodipine 2.5 mg tablet See Rx Instructions .Route 03/11/24 .COMPLEX #90 tabs cyanocobalamin (vitamin B-12) 500 500 mcg PO DAILY #30 tabs 03/11/24 mcg tablet (Vitamin B-12) ferrous sulfate, dried 144 mg (45 144 mg PO BID #60 tabs 03/11/24 mg iron) tablet,extended release Allergies Allergy/AdvReac Type Severity Reaction Status Date / Time naproxen Allergy KALIY-Swell Verified 03/22/24 17:44 Lip/Tongue/Throat Penicillins Allergy Unknown Verified 03/22/24 17:44 sulfamethoxazole Allergy ADR-Agitate Verified 03/22/24 17:44 [From Bactrim] d trimethoprim [From Bactrim] Allergy ADR-Agitate Verified 03/22/24 17:44 d Review of Systems 2 Narrative: Constitutional symptoms: Negative except as documented in HPI. Skin symptoms: Negative except as documented in HPI. Eye symptoms: Negative except as documented in HPI. ENMT symptoms: Negative except as documented in HPI. Respiratory symptoms: Negative except as documented in HPI. Cardiovascular symptoms: Negative except as documented in HPI. Gastrointestinal symptoms: Negative except as documented in HPI. Genitourinary symptoms: Negative except as documented in HPI. Musculoskeletal symptoms: Negative except as documented in HPI. Neurologic symptoms: Negative except as documented in HPI. Psychiatric symptoms: Negative except as documented in HPI. Endocrine symptoms: Negative except as documented in HPI. PFSH ED 2 PFSH: Medical History Thyroid nodule Lesion of skin of nose Acute bronchitis Essential hypertension Anemia Surgical History Hx of colonoscopy 10 + years ago History of ankle surgery Hx of tubal ligation Hx of cholecystectomy Family History Other CAD (coronary artery disease) Social History Smoking and tobacco/nicotine status: never used tobacco/nicotine Alcohol intake: never Physical Exam 2 Narrative: EXAM NARRATIVE: General: Alert, no acute distress. Skin: Warm, dry. Head: Normocephalic, atraumatic. Neck: Supple, trachea midline. Eye: Extraocular movements are intact. Ears, nose, mouth and throat: mucosa moist. Cardiovascular: Regular, Normal peripheral perfusion. Respiratory: Lungs are clear to auscultation, respirations are non-labored, breath sounds are equal, Symmetrical chest wall expansion. Gastrointestinal: Soft, Nontender, Non distended Musculoskeletal: Normal ROM, no deformity. Neurological: Alert and oriented, No focal neurological deficit observed. Psychiatric: Cooperative, appropriate mood & affect. Course 2 Vital Signs: Vital signs: Vital Signs Temperature 98.1 F 03/22/24 17:35 Pulse Rate 92 03/22/24 20:49 Respiratory Rate 16 03/22/24 20:49 Blood Pressure 150/81 03/22/24 20:49 Pulse Oximetry 98 03/22/24 20:49 Oxygen Delivery Me thod Room Air 03/22/24 19:20 MDM - Chest Pain Medical Decision Making Differential diagnosis for patient with chest pain includes but is not limited to and based on the above HPI, review of systems and physical exam: Pneumonia. unstable angina. angina. Acute coronary syndrome / [place]. Pulmonary embolism. Costochondritis / musculoskeletal. Pleurisy. Pericarditis. Esophageal spasm. Pancreatis. Cholecystitis. Orders placed to evaluate differential diagnosis based on the above differential, HPI and physical exam Lab Review: Laboratory results were reviewed and interpreted by myself the emergency room physician. Lab work is unremarkable. No leukocytosis. Renal function mildly elevated but near baseline at 29 1.2. Serial troponins are negative. Chest x-ray: No acute process. No infiltrate. No pneumothorax. This was reviewed and interpreted by myself the emergency room physician. I also reviewed the radiology report. I reviewed the patient's medical record. Reexamination: Patient remained stable. No increased work of breathing. No altered mental status. No focal motor deficits. Blood pressure is improved as well. Assessment and plan: Noncardiac chest pain Hypertension - Discharged home - Discussed plan with patient. Answered any questions. - Evaluation and treatment of this problem were appropriate in the emergency setting. Lab Data 03/22/24 18:50 03/22/24 18:50 Radiology Impressions Chest X-Ray 03/22/24 18:25 IMPRESSION: 1. Negative for infiltrate. 2. Emphysematous changes. 3. Aortic atherosclerotic calcifications. Laboratory Results WBC 4.16 10^3/uL (3.29-11.43) 03/22/24 18:50 RBC 3.59 10^6/uL (3.85-5.65) L 03/22/24 18:50 Hgb 11.10 g/dL (11.27-16.99) L 03/22/24 18:50 Hct 33.7 % (36-47) L 03/22/24 18:50 MCV 93.9 fl (85-98) 03/22/24 18:50 MCH 30.9 pg (27-33) 03/22/24 18:50 MCHC 32.9 g/dL (30-55) 03/22/24 18:50 RDW 12.1 % (12.1-15.1) 03/22/24 18:50 Plt Count 246 10^3/cmm (157-399) 03/22/24 18:50 MPV 8.4 fL (7.4-10.4) 03/22/24 18:50 Neut % (Auto) 54.8 % 03/22/24 18:50 Lymph % (Auto) 33.4 % 03/22/24 18:50 Day % (Auto) 7.2 % 03/22/24 18:50 Eos % (Auto) 2.9 % 03/22/24 18:50 Baso % (Auto) 1.2 % 03/22/24 18:50 Neut # (Auto) 2.28 10^3/uL (1.8-7.7) 03/22/24 18:50 Lymph # (Auto) 1.4 10^3/uL (0.8-4.8) 03/22/24 18:50 Day # (Auto) 0.3 10^3/uL (0.2-0.9) 03/22/24 18:50 Eos # (Auto) 0.1 10^3/uL (0.0-0.8) 03/22/24 18:50 Baso # (Auto) 0.1 10^3/uL (0.0-0.1) 03/22/24 18:50 Nucleated RBC % (auto) 0 % 03/22/24 18:50 Nucleated RBCs # 0.0 /100WBC 03/22/24 18:50 Sodium 134 mmol/L (136-145) L 03/22/24 18:50 Potassium 4.9 mmol/L (3.5-5.1) 03/22/24 18:50 Chloride 97 mmol/L (98-107) L 03/22/24 18:50 Carbon Dioxide 26 mmol/L (22-29) 03/22/24 18:50 Anion Gap 15.9 (5-19) 03/22/24 18:50 BUN 29 mg/dL (8-23) H 03/22/24 18:50 Creatinine 1.2 mg/dL (0.5-0.9) H 03/22/24 18:50 GFR Calculation Not Reportable 03/22/24 18:50 Glucose 109 mg/dL (65-115) 03/22/24 18:50 Calculated Osmolality 284 mOsm/kg (285-295) L 03/22/24 18:50 Calcium 10.0 mg/dL (8.5-10.5) 03/22/24 18:50 Total Bilirubin 0.3 mg/dL (0.15-1.2) 03/22/24 18:50 AST 21 U/L (0-32) 03/22/24 18:50 ALT 12 U/L (0-33) 03/22/24 18:50 Alkaline Phosphatase 83 U/L (35-105) 03/22/24 18:50 Troponin T Baseline 21 ng/L (0-10) H 03/22/24 18:50 Troponin T 120 Minute 22.22 ng/L (0-10) H 03/22/24 19:59 Delta Troponin T 1.22 ABS# (0-10) 03/22/24 19:59 NT-Pro-B Natriuret Pep 632 pg/mL (0-450) H 03/22/24 18:50 Total Protein 7.9 g/dL (6.6-8.7) 03/22/24 18:50 Albumin 4.9 g/dL (3.5-5.2) 03/22/24 18:50 Globulin 3.0 g/dL (1.3-4.6) 03/22/24 18:50 All radiology interpretation(s) finalized by discharge Discharge Plan Discharge Patient Disposition: Home Clinical Impression: Non-cardiac chest pain, Hypertension Condition: Stable Prescriptions: No Action loratadine 10 mg tablet 10 mg PO DAILY hydrochlorothiazide 12.5 mg tablet 12.5 mg PO DAILY Qty: 30 6RF lisinopril 5 mg tablet See Rx Instructions .ROUTE .COMPLEX Qty: 270 3RF Dose Instruction: TAKE 1 TABLET BY MOUTH THREE TIMES A DAY Rx Instructions: TAKE 1 TABLET BY MOUTH THREE TIMES A DAY famotidine 20 mg tablet See Rx Instructions .ROUTE .COMPLEX Qty: 90 3RF Dose Instruction: TAKE 1 TABLET BY MOUTH EVERY DAY Rx Instructions: TAKE 1 TABLET BY MOUTH EVERY DAY citalopram 20 mg tablet 20 mg PO DAILY Qty: 30 6RF amlodipine 2.5 mg tablet See Rx Instructions .ROUTE .COMPLEX Qty: 90 3RF Dose Instruction: TAKE 1 TABLET BY MOUTH EVERY DAY Rx Instructions: TAKE 1 TABLET BY MOUTH EVERY DAY cyanocobalamin (vitamin B-12) [Vitamin B-12] 500 mcg tablet 500 mcg PO DAILY Qty: 30 6RF ferrous sulfate, dried 144 mg (45 mg iron) tablet extended release 144 mg PO BID Qty: 60 6RF cod liver oil Capsule 1 cap PO DAILY aspirin 81 mg Tablet,Chewable 81 mg PO DAILY [id number] 333-133-5 mg Tablet 1 tab PO TID Discharge Orders: Discharge ED (Routine); Ordered 03/22/24 Ordered By: Mariaelena Glez Referrals: Diaz Lopes MD [Primary Care Provider] - Discharge Diet: Usual diet Discharge Activity: Increase activity as tolerated Patient Instructions: Noncardiac Chest Pain (ED), Opioid Safety, Pain Management Activity Restrictions/Additional Instructions: Thank you for choosing [facility] for your healthcare needs today. Please realize this is an emergency room and that we are providing you with a medical screening exam and this may not be complete and all inclusive of all the testing and or work up that you may need to determine your ailment or severity of your illness. You have been screened and evaluated and felt safe for discharge. Health conditions do change or evolve sometimes and as such it is important that you follow up with your Primary Doctor to be re checked, 3-5 days is a general good time frame for follow up. You are always welcome to return to the ED for re assessment if your symptoms are worsening or you have new concerns Coding Level of Care Code ED Button Tufting Machine Operator for Nilo Tarango
[2024-03-22] MEDS: nitroglycerin 0.4 mg sublingual Tablet SUBLINGUAL (19:17)
[2024-03-22 19:20] VITALS: BP 152/97; PULSE 96; RESP 18; O2SAT 94
[2024-03-22 19:25] LABS: Troponin(5th) Baseline 21 ng/L (0-10)
[2024-03-22 19:42] LABS: Alanine Aminotransferase 12 U/L (0-33); Albumin Level 4.9 g/dL (3.5-5.2); Alkaline Phosphatase 83 U/L (35-105); Anion Gap 15.9 (5-19); Aspartate Amino Transferase 21 U/L (0-32); Blood Urea Nitrogen 29 mg/dL (8-23); Carbon Dioxide 26 mmol/L (22-29); Chloride 97 mmol/L (98-107); Glucose 109 mg/dL (65-115); NT Pro B Type Natriuretic Pept 632 pg/mL (0-450); Osmolality Calculated 284 mOsm/kg (285-295); Potassium 4.9 mmol/L (3.5-5.1); Sodium 134 mmol/L (136-145); Total Bilirubin 0.3 mg/dL (0.15-1.2); Total Protein 7.9 g/dL (6.6-8.7)
[2024-03-22 20:23] LABS: Troponin 5 2HR 22.22 ng/L (0-10); Troponin 5 2HR Delta 1.22 ABS# (0-10)
[2024-03-22 20:49] VITALS: BP 150/81; PULSE 92; RESP 16; RESP 18; O2SAT 98
== END 2024-03-22 21:04 | disposition home or self-care (01) ==
PROVIDERS: Emergency Provider Emergency Medicine; PCP Family Medicine
DX: R07.89 Other chest pain (principal); I10 Essential (primary) hypertension; Z79.82 Long term (current) use of aspirin
CPT/HCPCS: 36415; 71045; 80053; 83880; 84484; 85025; 93005; 99285

== ENCOUNTER → 2024-05-10 09:41 | Outpatient (BNVA) | payer MEDICARE, OTHER, SELFPAY | PROVIDERS: PCP Family Medicine; Visit Provider Podiatrist Foot & Ankle Surgery | DX: I73.9 Peripheral vascular disease, unspecified (principal); L60.3 Nail dystrophy; L85.1 Acquired keratosis [keratoderma] palmaris et plantaris; L84 Corns and callosities; M21.611 Bunion of right foot; M20.41 Other hammer toe(s) (acquired), right foot; M79.671 Pain in right foot; M79.672 Pain in left foot; D50.9 Iron deficiency anemia, unspecified | CPT/HCPCS: 11055; 11721; 17110 ==

== ENCOUNTER → 2024-06-23 09:36 | Outpatient (BNVA) | payer MEDICARE, OTHER, SELFPAY | PROVIDERS: PCP Family Medicine; Visit Provider Podiatrist Foot & Ankle Surgery | DX: I73.9 Peripheral vascular disease, unspecified (principal); L60.3 Nail dystrophy; L84 Corns and callosities; L85.1 Acquired keratosis [keratoderma] palmaris et plantaris; D50.9 Iron deficiency anemia, unspecified | CPT/HCPCS: 11056; 11721; 17110 ==

== ENCOUNTER → 2024-07-15 08:50 | Outpatient (BNVA) | payer MEDICARE, OTHER, SELFPAY | PROVIDERS: PCP Family Medicine; Visit Provider Dermatology | DX: L73.8 Other specified follicular disorders (principal); L57.8 Other skin changes due to chronic exposure to nonionizing radiation; L82.1 Other seborrheic keratosis; Z08 Encounter for follow-up examination after completed treatment for malignant neoplasm; Z85.828 Personal history of other malignant neoplasm of skin; L57.0 Actinic keratosis | CPT/HCPCS: 17000; 99213 ==

== ENCOUNTER → 2024-10-05 10:56 | Outpatient (BNVA) | payer MEDICARE, OTHER, SELFPAY | PROVIDERS: PCP Family Medicine; Visit Provider Family Medicine | DX: Z51.81 Encounter for therapeutic drug level monitoring (principal); E53.8 Deficiency of other specified B group vitamins; R25.2 Cramp and spasm; E55.9 Vitamin D deficiency, unspecified; E04.1 Nontoxic single thyroid nodule | CPT/HCPCS: 80053; 82306; 82607; 83735; 84439; 84443; 85025 ==

== ENCOUNTER → 2024-11-24 18:44 | Outpatient (BNVA) | payer MEDICARE, OTHER, SELFPAY | PROVIDERS: PCP Family Medicine; Visit Provider Emergency Medicine | DX: R30.0 Dysuria (principal); N39.0 Urinary tract infection, site not specified | CPT/HCPCS: 81000; 87086 ==

== ENCOUNTER → 2025-01-21 10:58 | Outpatient (BNVA) | payer MEDICARE, OTHER, SELFPAY | PROVIDERS: PCP Family Medicine; Visit Provider Dermatology | DX: L73.8 Other specified follicular disorders (principal); L57.8 Other skin changes due to chronic exposure to nonionizing radiation; L82.1 Other seborrheic keratosis; D69.2 Other nonthrombocytopenic purpura; M25.50 Pain in unspecified joint; Z08 Encounter for follow-up examination after completed treatment for malignant neoplasm; Z85.828 Personal history of other malignant neoplasm of skin; L57.0 Actinic keratosis | CPT/HCPCS: 17000; 99213 ==

== ENCOUNTER → 2025-02-23 12:53 | Outpatient (BNVA) | payer MEDICARE, OTHER, SELFPAY | PROVIDERS: PCP Family Medicine; Visit Provider Podiatrist Foot & Ankle Surgery | DX: I73.9 Peripheral vascular disease, unspecified (principal); L60.3 Nail dystrophy; L85.1 Acquired keratosis [keratoderma] palmaris et plantaris; L84 Corns and callosities; D50.9 Iron deficiency anemia, unspecified | CPT/HCPCS: 11056; 11721; 17110; 73630 ==